=== PATIENT | male | born 1970 | race Caucasian/White ===

== ENCOUNTER 2020-01-09 14:54 | Emergency (ER) | payer MEDICAID ==
[~2020-01-09] VITALS: Ht 170.2 cm; Wt 68.0 kg
[2020-01-09] MEDS ORDERED: INSU100V8 SQ (15:10)
[2020-01-09] MEDS ORDERED: NPH,100V SQ (15:10)
--- NOTE | 2020-01-09 15:16 | NUR ---
DR. LICEA AT BEDSIDE, PT LAYING IN BED, RESPIRATIONS EVEN AND UNLABORED, CALL LIGHT WITHIN REACH.
[2020-01-09] MEDS ORDERED: SODIUM CHLORIDE 0.9% 1,000ML IVBOLUS ONE ×2 (15:30→18:00)
[2020-01-09 15:34] LABS: PH, VENOUS 7.325 pH (7.320-7.420)
[2020-01-09 15:35] LABS: BASOPHILS # (AUTO) 0.04 x10^3/uL (0-0.1); BASOPHILS % (AUTO) 1 % (0-1); EOSINOPHILS # (AUTO) 0.13 x10^3/uL (0-0.4); EOSINOPHILS % (AUTO) 1 % (1-7); FIO2 RA %; LYMPHOCYTES # (AUTO) 2.14 x10^3/uL (1-3.4); LYMPHOCYTES % (AUTO) 23 % (22-44); MD NO; MEAN CORPUSCULAR HEMOGLOBIN 30.1 pg (27.5-34.5); MEAN CORPUSCULAR HGB CONC 34.5 g/dL (33.2-36.2); MEAN CORPUSCULAR VOLUME 87.4 fL (81-97); MEAN PLATELET VOLUME 9.3 fL (7.4-10.4); MONOCYTES % (AUTO) 4 % (2-9); NEUTROPHILS # (AUTO) 6.63 x10^3/uL (1.8-6.8); NEUTROPHILS % (AUTO) 71 % (42-75); PLATELET COUNT 239 x10^3/uL (130-400); RED BLOOD COUNT 5.23 x10^6/uL (4.38-5.82); RED CELL DISTRIBUTION WIDTH 12.8 % (9.4-14.8)
[2020-01-09 15:47] LABS: ALANINE AMINOTRANSFERASE 50 U/L (12-78); ALBUMIN 3.3 g/dL (3.4-5.0); ANION GAP 9 mmol/L (5-15); CALCIUM 9.1 mg/dL (8.5-10.1); CHLORIDE 97 mmol/L (98-107); CREATININE 1.23 mg/dL (0.7-1.3)
[2020-01-09 15:49] LABS: ALKALINE PHOSPHATASE 137 U/L (45-117); BILIRUBIN,TOTAL 0.6 mg/dL (0.2-1.0); TOTAL PROTEIN 7.2 g/dL (6.4-8.2)
[2020-01-09 16:03] LABS: ACETONE, SERUM Negative (Negative)
--- NOTE | 2020-01-09 16:38 | NUR ---
PT LAYING IN BED, RESPIRATIONS EVEN AND UNLABORED, STATES "FEELING MUCH BETTER" DENIES DIZZINESS.
--- NOTE | 2020-01-09 17:16 | NUR ---
Float rn: Positive orthostatic vs noted and reported to Law DOWD. verbal order of 1 more ns L bolus. Hung per verbal order.
--- NOTE | 2020-01-09 17:33 | NUR ---
pt on feet to use urine for clean catch. pt steady on feet.
[2020-01-09 17:44] LABS: MICROSCOPIC NOT IND
[2020-01-09 17:46] LABS: CULTURE INDICATED? NO
[2020-01-09] MEDS ORDERED: LACTATED RINGERS 1,000 ML IVBOLUS ONE (18:30)
--- NOTE | 2020-01-09 18:39 | NUR ---
pt laying in bed, eyes closed, respirations even and unlabored, lights off to promote rest, call light within reach.
--- NOTE | 2020-01-09 18:58 | NUR ---
REPORT GIVEN TO JANI PAUL.
--- NOTE | 2020-01-09 19:03 | NUR ---
REPORT FROM SARAH GUNTER. PT RESTING IN [facility] IN NO DISTRESS, VSS.
[2020-01-09 19:42] VITALS: BP 99/69
== END 2020-01-09 20:33 | disposition home or self-care (01) ==
LOC: ED 19:45
DX: E11.65 Type 2 diabetes mellitus with hyperglycemia (principal); R55 Syncope and collapse; E86.1 Hypovolemia; F17.200 Nicotine dependence, unspecified, uncomplicated
CPT/HCPCS: 36415; 80053; 81003; 82010; 82803; 82962; 84439; 84443; 85025; 93005; 96360; 96361; 99285; J7030; J7120

== ENCOUNTER 2021-03-10 14:52 | Inpatient (IN) | payer MEDICAID ==
[~2021-03-10] VITALS: Ht 170.2 cm; Wt 60.5 kg
[~2021-03-10 14:52] MED LIST: INSU100V8 SQ; NPH,100V SQ
--- NOTE | 2021-03-10 15:14 | NUR ---
PT MANSOOR, EMS REPORTS N/V X 2 DAYS, STATES PT HAS NOT TAKEN REGULAR INSULIN FOR 3 MONTHS AND HAS ONLY BEEN TAKING FAST ACTING INSULIN. FSBG 192. EMS ALSO STATES PT HAS NOT EATEN IN 3 DAYS. PT A&O, RESPS EVEN AND SLIGHTLY LABORED, VSS, NADN. CALL LIGHT IN REACH.
[2021-03-10] MEDS ORDERED: ONDANSETRON 2MG/ML, 2ML ONE (15:52)
[2021-03-10] MEDS ORDERED: KETOROLAC 30 MG/1 ML ONE (15:52)
[2021-03-10] MEDS ORDERED: KETOROLAC 30 MG/1 ML IVPush ONE (16:00)
[2021-03-10] MEDS ORDERED: SODIUM CHLORIDE 0.9% 1,000ML IVBOLUS ONE ×2 (16:00→16:30)
[2021-03-10] MEDS ORDERED: ONDANSETRON 2MG/ML, 2ML IVPush ONE (16:00)
--- NOTE | 2021-03-10 16:05 | NUR ---
PT RESTING IN BED, A&O, RESPS EVEN AND UNLABORED, NADN. MONITORS ATTACHED, VSS. MEDICATED PER ORDER, TOLERATED WELL. CALL LIGHT IN REACH.
[2021-03-10 16:10] LABS: ALANINE AMINOTRANSFERASE 97 U/L (12-78); ALBUMIN 3.9 g/dL (3.4-5.0); CHLORIDE 88 mmol/L (98-107); CREATININE 1.42 mg/dL (0.7-1.3)
[2021-03-10 16:14] LABS: ALKALINE PHOSPHATASE 206 U/L (45-117); BILIRUBIN,TOTAL 0.9 mg/dL (0.2-1.0); TOTAL PROTEIN 8.3 g/dL (6.4-8.2); TROPONIN I < 0.015 ng/mL (0.000-0.045)
[2021-03-10 16:15] LABS: BASOPHILS % (AUTO) 0 % (0-1); EOSINOPHILS % (AUTO) 0 % (1-7); LYMPHOCYTES % (AUTO) 4 % (22-44); MEAN CORPUSCULAR HEMOGLOBIN 30.4 pg (27.5-34.5); MEAN PLATELET VOLUME 10.2 fL (7.4-10.4); MONOCYTES % (AUTO) 2 % (2-9); NEUTROPHILS % (AUTO) 93 % (42-75); PLATELET COUNT 297 x10^3/uL (130-400); RED BLOOD COUNT 6.24 x10^6/uL (4.38-5.82); RED CELL DISTRIBUTION WIDTH 14.8 % (9.4-14.8)
[2021-03-10 16:21] LABS: ANION GAP 26 mmol/L (5-15)
[2021-03-10] MEDS ORDERED: INSULIN REGULAR 100 UNITS/ML, 3ML VIAL IVPush ONE (16:30)
[2021-03-10] MEDS ORDERED: INSULIN SINGLE DOSE, ER ONE ×2 (16:44→16:52)
[2021-03-10 16:54] LABS: MD SCAN
[2021-03-10 17:16] LABS: ACETONE, SERUM Large (80mg/dL) (Negative)
--- NOTE | 2021-03-10 17:48 | NUR ---
PT RESTING IN BED, VSS, NADN. MONITORS ATTACHED, CALL LIGHT IN REACH. AWAITING ADMIT ORDERS AND POC.
[2021-03-10 18:07] LABS: PH, VENOUS 7.131 pH (7.320-7.420)
[2021-03-10 18:12] LABS: O2 FLOW ROOM AIR L/min
[2021-03-10] MEDS ORDERED: hydrALAzine 20 MG/ML, 1ML IVPush PRN (18:30)
[2021-03-10] MEDS ORDERED: BISACODYL 10 MG SUPP PR PRN (18:30)
[2021-03-10] MEDS ORDERED: OXYcodone IR 5MG TABLET PO PRN (18:30)
[2021-03-10] MEDS ORDERED: ACETAMINOPHEN 325 MG TABLET PO PRN (18:30)
[2021-03-10] MEDS ORDERED: POLYETHYLENE GLYCOL 17 GM PACKET PO PRN (18:30)
[2021-03-10] MEDS ORDERED: DOCUSATE 100 MG CAPSULE PO PRN (18:30)
[2021-03-10] MEDS ORDERED: METOCLOPRAMIDE 5 MG/ML, 2ML IVPush PRN (18:30)
[2021-03-10] MEDS ORDERED: ONDANSETRON ODT 4 MG PO PRN (18:30)
[2021-03-10] MEDS ORDERED: PROMETHAZINE 25 MG/ML, 1ML IM PRN (18:30)
[2021-03-10] MEDS ORDERED: ONDANSETRON 2MG/ML, 2ML IVPush PRN (18:30)
--- NOTE | 2021-03-10 18:47 | NUR ---
REPORT RECEIVED FROM DUNIA GUNTER
[2021-03-10 18:57] LABS: FREE T4 (FREE THYROXINE) 1.02 ng/dL (0.76-1.46)
--- NOTE | 2021-03-10 19:05 | NUR ---
PT SITITNG UPRIGHT ON SLOANE GUILLORY VSS. PT DENIES ANY NEEDS AT THIS TIME. CALL LIGHT AND PERSONAL BELONGINGS WITHIN REACH.
[2021-03-10] MEDS ORDERED: HEPARIN 5,000 UNITS/ML, 1ML ONE (19:17)
[2021-03-10] MEDS: HEPARIN 5,000 UNITS/ML, 1ML SQ SCH (19:19)
--- NOTE | 2021-03-10 19:35 | NUR ---
Pt to be admitted to CCU, room 551-2. Report called to REY.
[2021-03-10] MEDS ORDERED: REGULAR INSULIN 100 UNITS in SODIUM CHLORIDE 0.9% 99 ML IV PRN (19:59)
[2021-03-10 20:02] LABS: ESTIMATED AVERAGE GLUCOSE 355 mg/dL (0-126)
[2021-03-10 20:17] VITALS: BP 112/76
[2021-03-10] MEDS: SODIUM CHLORIDE 0.9% 1,000 ML IV SCH ×2 (20:33→23:56)
[2021-03-10 23:40] LABS: ANION GAP 16 mmol/L (5-15); CALCIUM 8.5 mg/dL (8.5-10.1); CHLORIDE 100 mmol/L (98-107); CREATININE 1.28 mg/dL (0.7-1.3)
[2021-03-11] MEDS: D5%-0.45NACL+KCL 20MEQ 1,000 ML IV SCH ×2 (00:42→06:04)
[2021-03-11] MEDS: HEPARIN 5,000 UNITS/ML, 1ML SQ SCH (02:07)
[2021-03-11 04:00] VITALS: BP 122/82
[2021-03-11 04:26] LABS: BASOPHILS % (AUTO) 1 % (0-1); EOSINOPHILS % (AUTO) 0 % (1-7); LYMPHOCYTES % (AUTO) 9 % (22-44); MEAN CORPUSCULAR HEMOGLOBIN 30.4 pg (27.5-34.5); MEAN CORPUSCULAR HGB CONC 35.3 g/dL (33.2-36.2); MEAN PLATELET VOLUME 8.9 fL (7.4-10.4); MONOCYTES % (AUTO) 5 % (2-9); NEUTROPHILS % (AUTO) 86 % (42-75); PLATELET COUNT 228 x10^3/uL (130-400)
[2021-03-11 04:27] LABS: MD NO
[2021-03-11] MEDS: SODIUM CHLORIDE 0.9% 1,000 ML IV SCH ×3 (04:30→20:24)
[2021-03-11 04:35] LABS: ANION GAP 9 mmol/L (5-15); CALCIUM 8.3 mg/dL (8.5-10.1); CHLORIDE 107 mmol/L (98-107); CHOLESTEROL, TOTAL 250 mg/dL (140-239); CREATININE 1.02 mg/dL (0.7-1.3); TRIGLYCERIDES 183 mg/dL (50-200); VLDL CHOLESTEROL 37 mg/dL (0-25)
[2021-03-11 04:37] LABS: HDL CHOLESTEROL (DIRECT) 50 mg/dL (40-60)
[2021-03-11 04:38] LABS: HDL CHOL % 20 % (26-37); LDL CHOLESTEROL,CALCULATED 163 mg/dL (54-169); LDL/HDL RATIO 3.3 (0.5-3.0)
[2021-03-11 05:32] LABS: MICROSCOPIC AUTO
[2021-03-11] MEDS ORDERED: INSULIN GLARGINE 100 UNITS/ML, PEN SQ-INSULIN SCH (09:30)
[2021-03-11 11:09] LABS: ANION GAP 5 mmol/L (5-15); CALCIUM 8.3 mg/dL (8.5-10.1); CHLORIDE 105 mmol/L (98-107); CREATININE 0.88 mg/dL (0.7-1.3)
[2021-03-11] MEDS: ENOXAPARIN 40 MG/0.4 ML SQ SCH (11:21)
[2021-03-11] MEDS: INSULIN LISPRO 100 UNITS/ML, PEN SQ-INSULIN SCH ×3 (11:22→20:30)
[2021-03-11] MEDS: CEFTRIAXONE 1,000 MG in DEXTROSE 5% 50 ML IVPB SCH (16:56)
[2021-03-11] MEDS: LINEZOLID 600 MG TABLET PO SCH (20:24)
[2021-03-11] MEDS: INSULIN GLARGINE 100 UNITS/ML, PEN SQ-INSULIN SCH (20:30)
[2021-03-12 00:57] VITALS: BP 112/71
[2021-03-12] MEDS: SODIUM CHLORIDE 0.9% 1,000 ML IV SCH ×2 (04:22→10:57)
[2021-03-12 05:34] LABS: BASOPHILS % (AUTO) 0 % (0-1); EOSINOPHILS % (AUTO) 1 % (1-7); LYMPHOCYTES % (AUTO) 22 % (22-44); MEAN CORPUSCULAR HEMOGLOBIN 30.6 pg (27.5-34.5); MEAN CORPUSCULAR HGB CONC 35.5 g/dL (33.2-36.2); MEAN PLATELET VOLUME 9.3 fL (7.4-10.4); MONOCYTES % (AUTO) 6 % (2-9); NEUTROPHILS % (AUTO) 71 % (42-75); PLATELET COUNT 144 x10^3/uL (130-400); RED BLOOD COUNT 4.44 x10^6/uL (4.38-5.82); RED CELL DISTRIBUTION WIDTH 14.6 % (9.4-14.8)
[2021-03-12 05:37] LABS: MD NO
[2021-03-12 05:48] LABS: CHLORIDE 104 mmol/L (98-107)
[2021-03-12 06:07] LABS: ALANINE AMINOTRANSFERASE 52 U/L (12-78); ALBUMIN 2.6 g/dL (3.4-5.0); ALKALINE PHOSPHATASE 106 U/L (45-117); ANION GAP 6 mmol/L (5-15); BILIRUBIN,TOTAL 0.7 mg/dL (0.2-1.0); CALCIUM 7.9 mg/dL (8.5-10.1); CREATININE 0.58 mg/dL (0.7-1.3); TOTAL PROTEIN 5.4 g/dL (6.4-8.2)
[2021-03-12] MEDS: INSULIN LISPRO 100 UNITS/ML, PEN SQ-INSULIN SCH ×4 (07:15→20:36)
[2021-03-12] MEDS: LINEZOLID 600 MG TABLET PO SCH ×2 (08:34→20:34)
[2021-03-12] MEDS: ENOXAPARIN 40 MG/0.4 ML SQ SCH (08:34)
[2021-03-12] MEDS: INSULIN GLARGINE 100 UNITS/ML, PEN SQ-INSULIN SCH ×2 (08:34→20:35)
[2021-03-12] MEDS ORDERED: INSU100I13 SQ-INSULIN (09:52)
[2021-03-12] MEDS ORDERED: CEPH750C9 PO (09:52)
[2021-03-12] MEDS ORDERED: INSU100I48 SQ (09:52)
[2021-03-12 10:30] VITALS: BP 107/72
[2021-03-12] MEDS ORDERED: POTASSIUM CHLORIDE 20 MEQ TAB.ER.PRT PO ONE (10:30)
[2021-03-12 12:31] VITALS: BP 100/62
[2021-03-12] MEDS: CEFTRIAXONE 1,000 MG in DEXTROSE 5% 50 ML IVPB SCH (16:34)
[2021-03-12] MEDS ORDERED: GADOTERATE 5 MMOL/10ML SYR ONE (19:07)
[2021-03-12 20:17] VITALS: BP 110/71
[2021-03-13] MEDS: SODIUM CHLORIDE 0.9% 1,000 ML IV SCH ×2 (00:09→07:20)
[2021-03-13 01:09] VITALS: BP 98/62
[2021-03-13 06:46] VITALS: BP 98/61
[2021-03-13] MEDS: INSULIN LISPRO 100 UNITS/ML, PEN SQ-INSULIN SCH ×2 (07:00→11:22)
[2021-03-13] MEDS: INSULIN GLARGINE 100 UNITS/ML, PEN SQ-INSULIN SCH (07:20)
[2021-03-13] MEDS: LINEZOLID 600 MG TABLET PO SCH (07:20)
[2021-03-13] MEDS: ENOXAPARIN 40 MG/0.4 ML SQ SCH (07:21)
== END 2021-03-13 13:30 | disposition home or self-care (01) | DRG 637 ==
LOC: ED 15:33 → EDIP 18:11 → CCU 19:54 → 3N 03-11 23:57 → DCLOUNGE 03-13 13:21
PROVIDERS: ADMIT Internal Medicine; ATTEND Internal Medicine
DX: E10.10 Type 1 diabetes mellitus with ketoacidosis without coma (principal); N17.0 Acute kidney failure with tubular necrosis; E86.0 Dehydration; F17.210 Nicotine dependence, cigarettes, uncomplicated; Z59.0 Homelessness; Z63.8 Other specified problems related to primary support group; Z79.4 Long term (current) use of insulin; Z91.19 Patient's noncompliance with other medical treatment and regimen
CPT/HCPCS: 36415; 71045; 80048; 80053; 80061; 81001; 82010; 82803; 82962; 83036; 83735; 84100; 84439; 84443; 84484; 85025; 87081; 93005; 96361; 96374; 96375; 99285; G0378; J0696; J1644; J1650; J1815; J1885; J2405; A9575; J3480; J7030